=== PATIENT | female | born 1985 | race Caucasian/White ===

== ENCOUNTER 2018-06-16 11:28 | Emergency (ER) | payer OTHER ==
[~2018-06-16] VITALS: Ht 162.6 cm; Wt 59.0 kg
--- NOTE | 2018-06-16 11:39 | PHYS DOC ---
Past History Past Medical History: Migraines Additional Past Surgical Histo: right hip replacement Smoking: Non-smoker Alcohol Use: None Drug Use: None Adult General HPI HPI Patient is a 32-year-old female who presents with tongue swelling. This began shortly after eating an exotic fruit-kiwano. Patient took 50 mg of Benadryl without any relief. Reports feeling and itchiness and swelling of her tongue. No difficulty breathing. No nausea or vomiting. No skin rash. Patient has a previous history of allergies to an unknown seafood, but she has eaten seafood since that time without any complications. Symptoms are moderate in intensity.[] Review of Systems Review of Systems Constitutional: Denies fever or chills [] Eyes: Denies change in visual acuity, redness, or eye pain [] HENT: Denies nasal congestion or sore throat [] Respiratory: Denies cough or shortness of breath [] Cardiovascular: No chest pain or palpitations[] GI: Denies abdominal pain, nausea, vomiting, bloody stools or diarrhea [] : Denies dysuria or hematuria [] Musculoskeletal: Denies back pain or joint pain [] Integument: Denies rash or skin lesions [] Neurologic: Denies headache, focal weakness or sensory changes [] Endocrine: Denies polyuria or polydipsia [] All other systems were reviewed and found to be within normal limits, except as documented in this note. Physical Exam Physical Exam Constitutional: Well developed, well nourished, no acute distress, non-toxic appearance. [] HENT: Normocephalic, atraumatic, bilateral external ears normal, oropharynx moist, no oral exudates, nose normal. [place] two, speaking full sentences[] Eyes: PERRLA, EOMI, conjunctiva normal, no discharge. [] Neck: Normal range of motion, no tenderness, supple, no stridor. [] Cardiovascular:Heart rate is tachycardic with a regular rhythm, no murmur [] Lungs & Thorax: Bilateral breath sounds clear to auscultation [] Abdomen: Bowel sounds normal, soft, no tenderness, no masses, no pulsatile masses. [] Skin: Warm, dry, no erythema, no rash. [] Back: No tenderness, no CVA tenderness. [] Extremities: No tenderness, no cyanosis, no clubbing, ROM intact, no edema. [] Neurologic: Alert and oriented X 3, normal motor function, normal sensory function, no focal deficits noted. [] Psychologic: Affect normal, judgement normal, mood normal. [] EKG EKG [] Radiology/Procedures Radiology/Procedures [] Course & Med Decision Making Course & Med Decision Making Pertinent Labs and Imaging studies reviewed. (See chart for details) ED course: Patient arrived, was placed in bed, and tolerated exam well. She received antihistamines as well as steroids and was feeling much better along with IV fluids. Patient was observed and had no recurrence of the symptoms. She was discharged in improved condition. Medical decision making: Patient had an allergic reaction to a food, this was her second time eating the kiwano fruit and she had no symptoms the first time that she ate it in February 2018. Given the tongue swelling will also write for an EpiPen for home use if necessary.[] Dragon Disclaimer Dragon Disclaimer This electronic medical record was generated, in whole or in part, using a voice recognition dictation system. Departure Departure: Impression: Primary Impression: Allergic reaction to food Disposition: HOME, SELF-CARE Condition: IMPROVED Patient Instructions: Food Allergy and Anaphylaxis Additional Instructions: Follow-up with your regular doctor in 2 days. Avoid the kiwano fruit. Take the medication as directed. Return to the ER if worsening tongue swelling, difficulty breathing, or any other concerns. Scripts Epinephrine (EPIPEN 2-HAY) 0.3 Mg/0.3 Ml Auto.injct 0.3 MG IJ 1X for anaphylaxis, #1 SYR Prov: RICKIE WALTON DO 06/16/18 Famotidine (PEPCID) 20 Mg Tablet 20 MG PO BID for allergic reaction for 7 Days, #14 TAB Prov: RICKIE WALTON DO 06/16/18 Prednisone (PREDNISONE) 50 Mg Tablet 1 TAB PO DAILY for INFLAMMATION, #5 TAB Prov: RICKIE WALTON DO 06/16/18 Hydroxyzine Hcl (HYDROXYZINE HCL) 25 Mg Tablet 1 TAB PO TID for allergic reaction, #30 TAB Prov: RICKIE WALTON DO 06/16/18 Problem Qualifiers Primary Impression: Allergic reaction to food Encounter type: initial encounter Qualified Codes: T78.1XXA - Other adverse food reactions, not elsewhere classified, initial encounter RICKIE WALTON DO Jun 16, 2018 11:39
[2018-06-16] MEDS ORDERED: IV NORMAL SALINE 1,000ML 1,000 ML IV ONE (11:45)
[2018-06-16] MEDS ORDERED: FAMOTIDINE 20 MG/2 ML VIAL IVP ONE (12:00)
[2018-06-16] MEDS ORDERED: diphenhydrAMINE 50 MG/ML VIAL IVP ONE (12:00)
[2018-06-16] MEDS ORDERED: methylPREDNISolone SOD SUCC PF 125 MG/2 ML VIAL. IV ONE (12:00)
[2018-06-16 12:17] VITALS: BP 145/73
[2018-06-16] MEDS ORDERED: EPIN0.3A4 IJ (12:46)
[2018-06-16] MEDS ORDERED: FAMO-63 PO (12:46)
[2018-06-16] MEDS ORDERED: HYDR25TA PO (12:46)
[2018-06-16] MEDS ORDERED: PRED50TA PO (12:46)
== END 2018-06-16 13:15 | disposition home or self-care (01) ==
LOC: ER 11:28
DX: K14.8 Other diseases of tongue (principal); T78.1XXA Other adverse food reactions, not elsewhere classified, initial encounter; G43.909 Migraine, unspecified, not intractable, without status migrainosus; X58.XXXA Exposure to other specified factors, initial encounter
CPT/HCPCS: 96374; 96375; 99283; J1200; J2930; J3490; J7030